=== PATIENT | female | born 1970 ===

== ENCOUNTER → 2016-06-06 | Day surgery (SDC) | payer OTHER ==
[~2016-06-06] MED LIST: LACTATED RINGER'S 1,000 ML BAG IV ONE; LACTATED RINGER'S 1000 ML INJ 1,000 ML ONE; MEPERIDINE HCL 25 MG/ML VIAL ONE; METHYLENE BLUE 100 MG/10 ML VIAL ONE; MIDAZOLAM HCL 2 MG/2 ML VIAL ONE; MORPHINE SULFATE 4 MG/ML INJ ONE; ONDANSETRON HCL 4 MG/2 ML VIAL IV PUSH ONE; PROPOFOL 200 MG/20 ML AMP IV ONE; ceFAZolin INJ 1,000 MG VIAL ONE; oxyCODONE/ACETAMINOPHEN 5 MG/325 MG TAB ONE
--- NOTE | 2016-06-07 13:30 | TN ---
cc: BIMAL ARCE DATE OF SURGERY 06/06/2016 PREOPERATIVE DIAGNOSIS Desires permanent sterility. POSTOPERATIVE DIAGNOSIS Desires permanent sterility. PROCEDURE Laparoscopic bilateral tubal ligation with Falope rings. SURGEON MD Claude ANESTHESIA General. ESTIMATED BLOOD LOSS 30 cc. COMPLICATIONS None. FINDINGS The patient had a grossly normal uterus, fallopian tubes and ovaries. The anterior and posterior cul-de-sacs were free of disease. The upper abdominal organs were normal as far as could be visualized. DESCRIPTION OF PROCEDURE The patient was taken to the operating room and following general anesthesia was placed in the dorsal lithotomy position. Her vagina, abdomen and perineum were prepped and draped. A HUMI catheter was placed in the uterus and the bladder was drained with a red rubber catheter. A 1-cm subumbilical skin incision was made, the Veress needle was inserted and 3 liters of CO2 was infused into the abdomen. The Veress needle was then removed and the laparoscope was placed without difficulty. A second puncture site was created under direct visualization. The findings were as noted above. The Falope ring applicator was loaded and Falope ring was easily applied to the isthmic portion of the right tube. A good portion of tube was noted to be within the ring. The same procedure was then repeated on the opposite tube and again, after placement of the Falope ring, a good section of tube was noted to be present within the ring. There was no bleeding. Photos of all areas were taken. All instruments were then removed and the CO2 gas was allowed to escape. The incisions were then closed with subcuticular #4-0 Vicryl stitch. The patient was then taken to the recovery room in good condition with all counts correct. She will be discharged home when stable and alert to follow up in one week in our office. DISCHARGE MEDICATION Percocet. DISCHARGE INSTRUCTIONS She was given instructions on physical activity and instructed to resume a regular diet as tolerated. Bimal Arce MD TGS/SSB /8:38 AM /1:24 PM
== END | disposition home or self-care (01) ==
LOC: ESDC 06:42
PROVIDERS: ATTEND Obstetrics & Gynecology
DX: Z30.2 Encounter for sterilization (principal)
CPT/HCPCS: 00851; 58671; J0690; J2175; J2250; J2270; J2405; J3010; J7120